=== PATIENT | female | born 1960 ===

== ENCOUNTER 2018-09-16 06:00 | Day surgery (SDC) | payer OTHER ==
[~2018-09-16 06:00] MED LIST: METFORMIN HCL500 MG PO; SIMVASTATIN PO; SYNTHROID50 MCG PO
[2018-09-16] MEDS ORDERED: PERCOCET 2.5-31 EACH PO (12:59)
== END 2018-09-16 15:25 | disposition home or self-care (01) ==
LOC: CIR.AMB 06:00
DX: D27.1 Benign neoplasm of left ovary (principal)